=== PATIENT | female | born 1985 ===

== ENCOUNTER → 2024-01-22 19:28 | Outpatient (CLI) | payer OTHER, SELFPAY ==
--- NOTE | 2024-01-22 19:31 | DI.MRI.S_ITS ---
PROCEDURE: MR KNEE LT WO CON INDICATIONS: PAIN IN RT AND LT KNEE TECHNIQUE: Noncontrast sagittal PD fast spin echo and T2 fast spin echo with fat saturation, sagittal 3-D FLASH with fat saturation; coronal T1 spin echo and PD fast spin echo with fat saturation, and axial PD fast spin echo with fat saturation through the knee. COMPARISON: [facility], MR, MR KNEE RT WO CON, 01/22/2024, 19:38. FINDINGS: Image quality: Excellent. Menisci: The medial and lateral menisci demonstrate normal morphology and internal signal. The meniscal root ligaments appear intact. Cruciate ligaments: The anterior and posterior cruciate ligaments appear intact. Medial structures: The medial collateral ligament appears intact. The posterior oblique ligament, semimembranosus tendon insertions, oblique popliteal ligament, and meniscocapsular junction appear intact. Visualized portions of the pes anserinus tendons appear normal. No abnormal bursal fluid. Lateral structures: The lateral collateral ligament, long and short heads of the biceps femoris tendon appear intact. The popliteus tendon appears normal; the popliteofibular ligament appears intact. The posterosuperior and anteroinferior popliteomeniscal fascicles appear intact. The arcuate and fabellofibular ligaments appear intact, on either side of the lateral inferior geniculate artery. Iliotibial band appears normal. Anterior structures: The quadriceps and patellar tendons appear intact. Marked superolateral Hoffa's fat edema, suggestive of patellar maltracking. Trace deep infrapatellar bursitis. Lateral tilt of the patella. Bones and cartilage: High-grade high-signal fissuring in the medial patellar facet. Multifocal mild chondral irregularity in the lateral patellar facet, with mild subchondral cystic changes and marrow edema. Cartilage of the trochlea is unremarkable. In the medial compartment, there is mild chondral irregularity in the mesial portion of the femoral condyle. Cartilage of the lateral compartment is unremarkable. No acute fracture. Joint space: Small knee effusion. No popliteal cyst. Popliteal vasculature is unremarkable. IMPRESSION: 1. Lateral tilt of the patella with findings suggestive of patellar maltracking. 2. Mild chondrosis of the patellofemoral compartment with mild subchondral cystic changes and marrow edema 3. Minimal chondrosis of the medial compartment. Dictated by: Micki Norris M.D. on 01/23/2024 at 11:28 Approved by: Micki Norris M.D. on 01/23/2024 at 11:36
--- NOTE | 2024-01-22 19:31 | DI.MRI.S_ITS ---
PROCEDURE: MR KNEE RT WO CON INDICATIONS: PAIN IN RT AND LT KNEE TECHNIQUE: Noncontrast sagittal PD fast spin echo and T2 fast spin echo with fat saturation, sagittal 3-D FLASH with fat saturation; coronal T1 spin echo and PD fast spin echo with fat saturation, and axial PD fast spin echo with fat saturation through the knee. COMPARISON: None. FINDINGS: Image quality: Excellent. Menisci: The medial and lateral menisci demonstrate normal morphology and internal signal. The meniscal root ligaments appear intact. Cruciate ligaments: The anterior and posterior cruciate ligaments appear intact. Medial structures: The medial collateral ligament appears intact. The posterior oblique ligament, semimembranosus tendon insertions, oblique popliteal ligament, and meniscocapsular junction appear intact. Visualized portions of the pes anserinus tendons appear normal. No abnormal bursal fluid. Lateral structures: The lateral collateral ligament, long and short heads of the biceps femoris tendon appear intact. The popliteus tendon appears normal; the popliteofibular ligament appears intact. The posterosuperior and anteroinferior popliteomeniscal fascicles appear intact. The arcuate and fabellofibular ligaments appear intact, on either side of the lateral inferior geniculate artery. Iliotibial band appears normal. Anterior structures: The quadriceps and patellar tendons appear intact. Lateral tilt of the patella. No femoral trochlear dysplasia or ventral trochlear prominence. Marked superolateral Hoffa's fat pad edema, raising concern for patellar maltracking. Bones and cartilage: There is mild chondral irregularity and mild chondral thinning in the medial patellar facet. The cartilage of the trochlea is unremarkable. The cartilage of the medial and the lateral compartments are well maintained. No acute fracture. Joint space: Small knee effusion. No popliteal cyst. Popliteal vasculature is unremarkable. IMPRESSION: 1. Lateral tilt of the patella with findings suggestive of patellar maltracking. Minimal chondrosis of the patellofemoral compartment. Dictated by: Micki Norris M.D. on 01/23/2024 at 11:21 Approved by: Micki Norris M.D. on 01/23/2024 at 11:28
== END ==
PROVIDERS: Referring Provider Nurse Practitioner Family; Visit Provider Nurse Practitioner Family
DX: M22.42 Chondromalacia patellae, left knee (principal); M25.462 Effusion, left knee; M25.461 Effusion, right knee; M25.561 Pain in right knee; M25.562 Pain in left knee
CPT/HCPCS: 73721

== ENCOUNTER → 2024-04-14 13:46 | Outpatient (CLI) | payer OTHER, SELFPAY ==
--- NOTE | 2024-04-14 13:48 | DI.US.S_ITS ---
PROCEDURE: US PELVIC COMPLETE INDICATIONS: FERTILITY ISSUES TECHNIQUE: Real-time scanning was performed of the pelvic organs, with image documentation. Additional endovaginal scanning was necessary due to incomplete visualization of the adnexal and endometrial structures by transabdominal scanning. COMPARISON: None. FINDINGS: Uterus: 9 x 6 x 6 cm. Borderline thickened endometrium at 15 mm. Ovaries: Nonenlarged bilateral ovaries measuring 8 cc on the right and 4 cc on the left. Multiple follicles are seen, none dominant measuring over 1 cm. The largest is seen in the right ovary measuring 7 mm. Other: No pathologic free fluid. IMPRESSION: Prominent endometrium measuring 15 mm, upper limit of normal for age. Multiple ovarian follicles, without dominant follicle measuring over 1 cm. Ovaries are nonenlarged. Dictated by: Froylan Mota M.D. on 04/14/2024 at 16:56 Approved by: Froylan Mota M.D. on 04/14/2024 at 16:57
== END ==
PROVIDERS: PCP Nurse Practitioner Family; Referring Provider Nurse Practitioner Family; Visit Provider Nurse Practitioner Family
DX: Z31.41 Encounter for fertility testing (principal)
CPT/HCPCS: 76830; 76856